=== PATIENT | female | born 2000 | race Asian ===

== ENCOUNTER 2023-07-12 14:03 | Emergency (ER) | payer OTHER, SELFPAY ==
[2023-07-12 14:07] VITALS: BP 120/66
[2023-07-12 14:29] LABS: % Basophils 0.6 % (0-2); % Eosinophils 0.9 % (0-6); % Immature Granulocytes 0.1 % (0-0.5); % Lymphocytes 22.8 % (20.5-51.1); % Monocytes 5.3 % (1.7-9.3); % Neutrophils 70.3 % (42.2-75.2); Absolute Eosinophils 0.1 10^3/uL (0-0.7); Absolute Lymphocytes 1.6 10^3/uL (1.2-3.4); Absolute Monocytes 0.4 10^3/uL (0.1-0.6); Absolute Neutrophils 4.9 10^3/uL (1.4-6.5); Hematocrit 41.8 % (37.0-47.0); Hemoglobin 13.6 g/dL (12.0-16.0); Mean Corp Hgb Conc. 32.5 g/dL (33.0-37.0); Mean Corpuscular Hgb 25.9 pg (27.0-31.0); Mean Corpuscular Volume 79.6 fL (81.0-99.0); Mean Platelet Volume 9.4 fL (7.4-10.4); Nucleated Red Blood Cells % 0 %; Platelet Count 248 10^3/uL (130-400); Red Blood Cell Count 5.25 10^6/uL (4.20-5.40); Red Cell Dist. Width 12.6 % (11.5-14.5); White Blood Cell Count 6.9 10^3/uL (4.8-10.8)
[2023-07-12 14:29] LABS: Urine Albumin Negative (Neg - Trace); Urine Bilirubin Negative (Negative); Urine Character Clear (Clear); Urine Color Yellow; Urine Glucose Negative (Negative); Urine Ketone Trace (Negative); Urine Leukocyte Negative (Negative); Urine Nitrite Negative (Negative); Urine Occult Blood Negative (Negative); Urine Specific Gravity 1.015 (<1.030); Urine Urobilinogen Negative (Neg - 1+)
[2023-07-12 14:46] LABS: HCG, Serum Qualitative Screen Negative
[2023-07-12 14:48] LABS: ALT (SGPT) 19 U/L (0-35); AST (SGOT) 23 U/L (14-36); Albumin 4.8 g/dl (3.5-5.0); Alkaline Phosphatase 61 U/L (38-126); Blood Urea Nitrogen 11 mg/dl (7-17); Calcium 9.8 mg/dl (8.4-10.2); Carbon Dioxide 30 mmol/L (22-30); Chloride 103 mmol/L (98-107); Glucose 115 mg/dl (70-99); Lipase 95 U/L (23-300); Potassium 3.8 mmol/L (3.5-5.1); Sodium 137 mmol/L (135-145); Total Protein 7.4 g/dl (6.3-8.2); eGFR > 60.00
[2023-07-12] MEDS: OMNIPAQUE 50 ML PO (17:54)
[2023-07-12 17:58] VITALS: BP 136/81; BMI 22.9
--- NOTE | 2023-07-12 18:41 | ED.GENMED ---
History of Present Illness
General
Chief Complaint: Abdominal Symptoms
Time Seen by Provider: 07/12/23 17:26
Travel History
Have you had any contact with someone who has COVID-19?: No
Do you have any symptoms of coronavirus? Fever > 100 degrees, chills, cough, shortness of breath, sore throat, loss of taste or smell, muscle aches, or headache?: No
Course
Orders/Labs/Results
Orders:
Orders
07/12/23 14:09
Test Result ONCE
07/12/23 14:14
Complete Blood Count/With Diff Urgent
Comprehensive Metabolic Panel Urgent
HCG, Serum Qualitative Screen Urgent
Lipase Urgent
07/12/23 14:18
Urinalysis Reflex To Culture Urgent
Date Specimen was Collected: 07/12/23
Time Specimen was Collected: 14:08
07/12/23 17:32
Iohexol [Omnipaque] See Protocol PO NOW STA
07/12/23 17:33
CT Abd/pel W Iv And Oral Contr Urgent
Comment:
Reason For Exam: right abd pain
Abnormal Lab Results
07/12/23 07/12/23
14:14 14:18
MCV 79.6 L fL
(81.0-99.0)
MCH 25.9 L pg
(27.0-31.0)
MCHC 32.5 L g/dL
(33.0-37.0)
Glucose 115 H mg/dl
(70-99)
Urine Ketones Trace A
(Negative)
07/12/23 14:14
07/12/23 14:14
Vital Signs
Initial and Last Documented VS:
Initial Vital Signs
Temp Pulse Resp BP Pulse Ox
98.2 F 82 16 120/66 98
07/12/23 14:07 07/12/23 14:07 07/12/23 14:07 07/12/23 14:07 07/12/23 14:07
Last Documented Vital Signs
Temp Pulse Resp BP Pulse Ox
98.2 F 82 16 136/81 99
07/12/23 14:07 07/12/23 14:07 07/12/23 14:07 07/12/23 17:58 07/12/23 17:58
ED Attending Note
ED Attending Note
Patient seen and examined by attending physician: Yes
I performed the substantive portion of visit, reviewed & personally made and approve the management plan that is documented in note by myself or JIA.: Yes
ED Attending Note:
22-year-old female presents emergency department complaints of abdominal discomfort that started approximately 3 days ago and continues, mostly in the upper abdomen but also across her lower abdomen. Pain is like a 'cramping', constant, without
exacerbating, relieving factors. She denies associated fever or chills but did note vomiting earlier today. She has mild anorexia. She went to an urgent care and was referred to the emergency department. On exam, patient awake alert and overall
well-appearing. She has very mild nonspecific tenderness to palpation particularly at the area just superior to the umbilicus. No rebound or guarding. Labs generally unremarkable, CT pending. Will reexamine status post CAT scan. Clinically I
think acute abdominal process such as cholecystitis, appendicitis, etc. very unlikely.
-
Portions of this chart may have been created with voice recognition software.� Occasional wrong word or��sound alike� substitutions may have occurred due to the inherent limitations of voice recognition software.
Discharge Plan
Departure
Referrals:
Brigitte Thomas CRNP [Family Provider] -
Interventions
Interventions:
*Risk Screen - Suicide Last Done: 07/12/23 14:05
*General Assessment Last Done: 07/12/23 14:05
*Neglect/Abuse Screening Last Done: 07/12/23 14:05
*ED COVID-19 Vaccine History Last Done: 07/12/23 17:58
[facility] Assessment Last Done: 07/12/23 18:02
Discharge Date and Time
Print Language: WELSH
[2023-07-12 20:03] VITALS: BP 131/82
[2023-07-12] MEDS: ZOFRAN 4 MG IV (21:01)
== END 2023-07-12 21:11 | disposition home or self-care (01) ==
LOC: EMR 14:03
PROVIDERS: EMERGENCY PHYSICIAN Emergency Medicine; FAMILY PHYSICIAN Nurse Practitioner
DX: R10.9 Unspecified abdominal pain (principal)
CPT/HCPCS: 99284; 74177; 80053; 81003; 83690; 84703; 85025; Q9967